=== PATIENT | male | born 1960 | race Caucasian/White ===

== ENCOUNTER 2017-11-28 13:27 | Emergency (ER) | payer MEDICAID ==
[2017-11-28 13:32] VITALS: RESP 18; TEMP 97.7
--- NOTE | 2017-11-28 13:32 | EDPHY ---
H & P Time Seen by Provider: 11/28/17 13:29 - Personal History Tetanus Vaccine Date: < 10 DAYS Constitutional: Initial Vital Signs Temperature (C) 36.5 C 11/28/17 13:28 Heart Rate 94 11/28/17 13:28 Respiratory Rate 18 11/28/17 13:28 Blood Pressure 135/89 H 11/28/17 13:28 O2 Sat (%) 100 11/28/17 13:28 O2 Delivery Mode Room Air Allergies/Adverse Reactions: No Known Allergies Allergy (Unverified 07/21/12 10:37) Home Medications: Medication Instructions Recorded Lithobid Dose Unk 07/21/12 Rivaroxaban [Xarelto 15mg (*)] 15 mg PO BID #42 tab 11/28/17 Rivaroxaban [Xarelto] 20 mg PO DAILY #67 tab 11/28/17 Medical Decision Making - Diagnostics Imaging Results: Imaging Impressions Extremity Venous Study 11/28/17 13:30 Impression: 1. Deep venous thrombus extending from the right external iliac vein through the calf veins. Findings discussed with the bilingual medical assistant with Shay Aguilar MD at 14: 38 hour, 11/28/2017. Imaging: Discussed imaging studies w/ inbound call center agent Radiologist ED Course/Re-evaluation: CHIEF COMPLAINT: Right leg swelling HISTORY OF PRESENT ILLNESS: The patient is a 57 y/o male arriving at the referral of his PCP for evaluation of possible DVT in his right leg. On Friday , 3 days ago, he developed localized pain on his medial mid-thigh. Since then he 's had swelling and pain extending down his leg to his calf and ankle. He denies chest pain, dyspnea, prior blood clots, recent long travel or surgery, fever, rash, or itching. He says he sat a lot during the holidays. He is not aware of any family history of thromboemboli disease. He is normally healthy. REVIEW OF SYSTEMS: A 10 point review of systems was performed and is negative with the exception of the elements mentioned in the history of present illness. PHYSICAL EXAM: HR, BP, O2 Sat, RR. Temp noted General Appearance: Alert, well hydrated, appropriate, and non-toxic appearing. Head: Atraumatic without scalp tenderness or obvious injury Eyes: Pupils equal, round, reactive to light and accommodation, EOMI, no trauma , no injection. Nose: Atraumatic, no rhinorrhea, clear. Throat: Mucus membranes moist. Neck: Supple Respiratory: No retractions, no distress, no wheezes, and no accessory muscle use. Lungs are clear to auscultation bilaterally. Cardiovascular: Regular rate and rhythm, no murmurs, rubs, or gallops. Right dorsalis pedis and posterior tibial pulses intact. Good capillary refill all extremities. Gastrointestinal: Abdomen is soft, non-tender, non-distended, no masses, no rebound, no guarding, no peritoneal signs. Musculoskeletal: Normal active ROM of all extremities, atraumatic. Right leg has some increased circumference compared to left, swelling in ankle and foot without erythema or lymphangitis. Neurological: Alert, appropriate, and interactive. The patient has non-focal cranial nerves, motor, sensory, and cerebellar exam. Skin: No rashes, good turgor, no nodules on palpation. PAST MEDICAL HISTORY: Denies PAST SURGICAL HISTORY: Denies SOCIAL HISTORY: Family at bedside. Lives in [place]. Not employed, PCP: Dr. Rosario. DIAGNOSTICS/PROCEDURES/CRITICAL CARE TIME: Right leg US: extensive DVT from external iliac vein to calf. DIFFERENTIAL DIAGNOSIS: The differential diagnosis for the patient's leg swelling included but was not limited to hypoalbuminemia, congestive heart failure, cor pulmonale, venous stasis, trauma, and DVT. MEDICAL DECISION MAKING: This is a healthy 57 y/o male who presents with a 3-day history of worsening right leg swelling and pain. His PCP requested an US study to rule out DVT. Patient has no obvious risk factors for DVT by history. He has minimal pain upon assessment. US ordered. US shows extensive DVT on preliminary read. Patient will be discharged on 3- month course of Xarelto with PCP follow up. Return precautions discussed. He is comfortable with this plan. As this was an unprovoked clot, I've ordered a hypercoag panel for Dr. Rosario to check, which will take several days to result. Departure - Departure Disposition: Home, Routine, Self-Care Clinical Impression: Right leg DVT Qualifiers: Affected thrombotic vein of extremity: iliac Chronicity: acute Qualified Code(s ): I82.421 - Acute embolism and thrombosis of right iliac vein Condition: Good Instructions: Rivaroxaban (By mouth), Deep Vein Thrombosis (ED) Additional Instructions: 1. Take Xarelto as prescribed. For the first 21 days you will take 15mg twice daily. After 21 days for the remainder of the 3-month period you will take 20mg once daily. 2. Follow up with your primary care provider within one week. 3. Return to the ED for severe pain, chest pain, shortness of breath, or other worsening of condition. Referrals: Perez Rosario MD [Primary Care Provider] - As per Instructions Prescriptions: Rivaroxaban [Xarelto 15mg (*)] 15 mg PO BID #42 tab Rivaroxaban [Xarelto] 20 mg PO DAILY #67 tab Report Scribed for: Shay Aguilar Report Scribed by: Lenore Guillermo Date of Report: 11/28/17 Time of Report: 14:03
[2017-11-28] MEDS ORDERED: RIVAROXABAN 15 MG TAB PO ONE (14:20)
[2017-11-28 15:51] VITALS: BP 141/84; PULSE 90; O2SAT 99
[2017-11-28 17:08] LABS: INR 1.03 (0.83-1.16); PROTIME(PATIENT) 13.7 SEC (12.0-15.0)
== END 2017-11-28 15:48 | disposition home or self-care (01) ==
DX: I82.421 Acute embolism and thrombosis of right iliac vein (principal); Z79.01 Long term (current) use of anticoagulants
CPT/HCPCS: 85300-90; 85303-90; 85306-90; 86147-90

== ENCOUNTER → 2018-01-23 | Outpatient (CLI) | payer MEDICAID | LOC: FIMAGING 13:12 | PROVIDERS: ATTEND Internal Medicine Hematology & Oncology | DX: I82.411 Acute embolism and thrombosis of right femoral vein (principal); I82.421 Acute embolism and thrombosis of right iliac vein; I82.431 Acute embolism and thrombosis of right popliteal vein; I82.491 Acute embolism and thrombosis of other specified deep vein of right lower extremity ==